=== PATIENT | female | born 1960 | race Caucasian/White ===

== ENCOUNTER 2018-08-04 19:00 | Outpatient (REF) | payer OTHER, SELFPAY ==
[2018-08-04 22:21] LABS: Bilirubin Negative (Negative); Blood Moderate (Negative); Clarity Clear; Glucose Negative (Negative); Ketones Negative (Negative); Leukocyte Esterase Negative (Negative); Nitrite Negative (Negative); Urobilinogen 0.2 EU/dL (Up TO 0.2); pH 5.5 (5-8)
[2018-08-04 22:39] LABS: Bacteria Negative HPF (Negative); C & S Indicated? No; Casts Negative LPF (Negative); Crystals Negative HPF (Negative); Epithelial Cells Negative HPF (Negative); Mucus Negative (Negative); Other Cells Negative (Negative); RBC 0-2 (0-2); WBC Negative HPF (0-5)
== END 2018-08-04 19:20 ==
LOC: LBN 19:00
PROVIDERS: PCP Nurse Practitioner Family; Visit Provider Nurse Practitioner Family
DX: R31.9 Hematuria, unspecified (principal)
CPT/HCPCS: 81003; 81015; 87086

== ENCOUNTER 2018-08-11 01:50 | Outpatient (CLI) | payer OTHER, SELFPAY ==
--- NOTE | 2018-08-11 07:47 | DI.US_ITS ---
SYMPTOMS/DIAGNOSIS: POSTMENOPAUSAL BLEEDING, HEMATURIA PELVIC ULTRASOUND: The uterus measures 6.6 cm length, 3.2 cm in height and 4.8 cm in width with an endometrial stripe thickness of 5 mm. There is a posterior fibroid measuring 2.1 x 2.3 x 2.0 cm at the junction of the fundus and proximal uterine body. The right ovary measures 3.2 x 2.1 x 2.3 cm. The left ovary measures 2.0 x 1.0 x 2.1 cm. Normal color flow is noted in both ovaries. A simple cyst in the right ovary measures 1.8 x 1.5 x 1.5 cm. The left ovary is unremarkable. SUMMARY: A uterine fibroid is demonstrated and there is a right renal cyst. There is no evidence of free pelvic fluid or mass. ABDOMINAL ULTRASOUND: The aorta and vena cava are intact. The liver is intact. The gallbladder is unremarkable. The common duct is normal in caliber. The pancreas and spleen are intact. The kidneys are unremarkable. There is no evidence of free fluid. SUMMARY: Normal abdominal ultrasound.
== END 2018-08-11 02:10 ==
PROVIDERS: PCP Nurse Practitioner Family; Visit Provider Nurse Practitioner Family
DX: N95.0 Postmenopausal bleeding (principal); R31.9 Hematuria, unspecified; D25.9 Leiomyoma of uterus, unspecified; N28.1 Cyst of kidney, acquired
CPT/HCPCS: 76700; 76830; 76856

== ENCOUNTER 2018-08-12 17:11 | Outpatient (REF) | payer OTHER, SELFPAY ==
--- NOTE | 2018-08-12 15:20 | ENDOMET_PTH ---
PATIENT: Kimberly Pitts LOC: [facility] U#:[id number] AGE/SX: 58/F ROOM: RE08/12/[address]: Pauly Feng : 1960 BED: DIS: 08/12/2018 SPEC #: [id number] RECD: 08/12/18 17:21 STATUS: ILSA REHeraclio #: [id number] PAULINA: 08/12/18 15:[address]: Pauly Feng DEPT: Surgical Specimen RECD BY: Cherri James ENTERED: 08/12/18 17:21 SP TYPE: Endomet GONZALEZ DR: SELENE Reese Tissues: 1 - ENDOMETRIUM BX/CURRETTE Procedures: GROSS AND MICRO LEVEL 4 Comments: [id number]
== END 2018-08-12 17:31 ==
LOC: LBN 17:11
PROVIDERS: PCP Nurse Practitioner Family; Visit Provider Obstetrics & Gynecology Gynecology
DX: N85.8 Other specified noninflammatory disorders of uterus (principal); N95.0 Postmenopausal bleeding
CPT/HCPCS: 88305

== ENCOUNTER 2018-10-03 16:27 | Outpatient (REF) | payer OTHER, SELFPAY ==
--- NOTE | 2018-10-03 15:30 | PAPFT_PTH ---
PATIENT: Kimberly Pitts LOC: [facility] U#:[id number] AGE/SX: 58/F ROOM: RE10/03/[address]: SELENE Reese : 1960 BED: DIS: 10/03/2018 SPEC #: [id number] RECD: 10/04/18 13:23 STATUS: ILSA YATES #: [id number] PAULINA: 10/03/18 15:[address]: Emily Stevens DEPT: [facility] Cytology RECD BY: Cherri James Tissues: 1 - CX/ENDOCX FOR PAP SMEARS Procedures: PAP THIN PREP/UVM Screening HPV DNA PROBE Comments: [id number]
== END 2018-10-03 16:47 ==
LOC: LBN 16:27
PROVIDERS: PCP Nurse Practitioner Family; Visit Provider Nurse Practitioner Family
DX: Z12.4 Encounter for screening for malignant neoplasm of cervix (principal); Z11.51 Encounter for screening for human papillomavirus (HPV)
CPT/HCPCS: 88142; 87624

== ENCOUNTER 2018-10-12 00:49 | Outpatient (CLI) | payer OTHER, SELFPAY ==
--- NOTE | 2018-10-12 07:50 | DI.MAMMO_ITS ---
SYMPTOM/DIAGNOSIS: SCREENING, Z12.31 MAMMOGRAMS: Mammograms were interpreted according to the usual protocol including computer analysis with CAD system, tomosynthesis and C view imaging. Comparison with prior examinations. Breast density C. No suspicious masses or microcalcifications are seen. There is no definite evidence of malignancy. IMPRESSION: Negative mammogram. Routine screening is recommended. Category I. MQSA ASSESSMENT OF FINDINGS: Negative. Category 1. Patient will receive a letter notifying them of these results. Bi-RADS category C. The breasts are heterogeneously dense, which may obscure small masses.
== END 2018-10-12 01:09 ==
PROVIDERS: PCP Nurse Practitioner Family; Visit Provider Nurse Practitioner Family
DX: Z12.31 Encounter for screening mammogram for malignant neoplasm of breast (principal)
CPT/HCPCS: 77063; 77067

== ENCOUNTER 2019-02-06 10:55 | Day surgery (SDC) | payer OTHER, SELFPAY ==
--- NOTE | 2019-02-06 06:54 | W.COLOREPORT ---
Date of service: 02/06/19 Time of Service: 12:16 Colonoscopy Report Date of procedure: 02/06/19 Pre-op diagnosis general: Hx of colon polyps Post-op diagnosis procedure note: same (sigmoid polyp and diverticula) Procedure: Colonoscopy with polypectomy by cold forceps Surgeon: Milvia Gloria Anesthesia proc note operative: other (General/ ASA 2/ Raven Thakur, MORGAN) Estimated blood loss (mL): 3 Pathology: other (sigmoid colon polyp) Complications: None Disposition: same day Indications: Mrs. Pitts is a pleasant 58 year old female seen in the office for a follow up Colonoscopy. Her last Colonoscopy was in 2016 and she was found to have a sessile serrated adenoma. Risks, benefits and complications have been reviewed. Complications include but are not limited to bleeding, pain, perforation, missed small lesion/polyp, sore throat, aspiration and adverse reaction to the medications. Questions were entertained and answered to their satisfaction and they wished to proceed. No guarantees were given or implied. Prep: Miralax/Dulcolax Procedure Start Time: 12:16 Procedure End Time: 12:39 Retraction Time: 18 minutes Findings: One small sessile polyp in the sigmoid colon and moderate dievrticulosis of descending and sigmoid colon Procedure Description: After informed consent was obtained the patient was taken to the procedure room and placed in a left decubitous position. Monitors were applied and a time out was done. The patients name, date of , procedure, allergies to medications and metal in their body was reviewed. The patient was then sedated. Once sedated and comfortable a rectal exam was done. External exam was normal. Internal exam revealed a normal sphincter tone and no palpable masses. The scope was then introduced and retro-flexed. No internal hemorrhoids were identified. The scope was then advanced to the cecum without difficulty. The TI and appendiceal orifice were identified. The prep was adequate. The scope was then slowly retracted over 18 minutes back into the rectum. Polyps were removed with cold forceps in the sigmoid colon. The scope was removed and the patient was woken up and taken back to Same day surgery in stable condition. The patient tolerated the procedure well and there were no immediate complications. Follow up: The patient should follow up in 3-5 years unless they develop changes in bowel habits or other new gastrointestinal complaints.
--- NOTE | 2019-02-06 06:56 | W.PM.DSUDISC ---
Discharge Plan Disposition Patient Disposition: HOME Condition: Good Discharge Details Reason For Visit: Hx of Colon polyps Attending Provider: Milvia Gloria Primary Care Provider: Emily Stevens Home Meds and New Rx's Prescriptions: Continued ibuprofen 200 mg capsule 200 mg PO TID-QID PRNRF: 0 acetaminophen [Tylenol Extra Strength] 500 mg tablet 1,000 mg PO Q6H PRNRF: 0 Discontinued polyethylene glycol 3350 17 gram/dose powder 238 g PO ONCE Qty: 238 RF: 0 bisacodyl [Dulcolax (bisacodyl)] 5 mg tablet,delayed release (DR/EC) 5 mg PO ONCE Qty: 4 RF: 0 Discharge Instructions Instructions: Colonoscopy (DC), Diverticulosis (DC), Colorectal Polyps (DC) Additional Instructions: Findings: One polyp Diverticulosis Follow up: 3-5 years ago Please call if you develop: fevers >101.5 Nausea or Vomiting Abdominal pain that is not transient DAY SURGERY UNIT POST COLONOSCOPY INSTRUCTIONS 1. Because there will be medication in your system for the next 24 hours, you may feel a little sleepy. Your coordination will be affected. Therefore: a. Do not drive or operate dangerous equipment for 24 hours. b. Do not drink alcohol beverages for 24 hours (not even beer). c. Plan to go home and rest for the day. 2. Generally there are no restrictions on your activity after a day or so has gone by, but you may feel a bit fatigued for a few days. 3 After you arrive home you may have a light meal and return to a normal diet as you can tolerate it without feeling sick to your stomach. 4. After surgery, you may feel pain or discomfort. This should be only transient, but if it persists please contact your doctor. 5. If there are any questions regarding the findings of your procedure, please feel free to contact your doctor. 6. If you are unable to contact your doctor with a problem, contact the hospital at [phone]. 7. Continue all your regular medications unless directed otherwise. I understand the above instructions and have no questions. Signature of Patient or Responsible Adult Escort Date/Time Name of Responsible Adult Escort Signature of Nurse Date/Time Activity:: Activity as Tolerated Diet:: High Fiber diet Discharge Orders Discharge Orders: Discharge Order (Routine); Ordered 02/06/19 Ordered By: Milvia Gloria DS: Diagnosis Discharge Diagnosis (1) S/P colonoscopy: Status: Acute (2) Colorectal polyp detected on colonoscopy: Status: Acute (3) Diverticulosis: Status: Acute
[2019-02-06 11:24] VITALS: BP 120/73; PULSE 71; RESP 16; TEMP 36; O2SAT 96
[2019-02-06] MEDS: Lactated Ringers 1,000 ML 80 ML IV (12:04)
--- NOTE | 2019-02-06 12:30 | BOWEL_PTH ---
PATIENT: Kimberly Pitts LOC: [facility] U#:[id number] AGE/SX: 58/F ROOM: RE02/06/[address]: Milvia Gloria MD : 1960 BED: DIS: 02/06/2019 SPEC #: [id number] RECD: 02/06/19 13:00 STATUS: ILSA YATES #: [id number] PAULINA: 02/06/19 12:[address]: Milvia Gloria DEPT: Surgical Specimen RECD BY: Cherri James ENTERED: 02/06/19 13:00 SP TYPE: Bowel OTHR DR: SELENE Reese Tissues: 1 - BIOPSY BOWEL Procedures: GROSS AND MICRO LEVEL 4 Comments: [id number]
[2019-02-06 14:05] VITALS: BP 100/58; PULSE 67; RESP 14; TEMP 35.4; O2SAT 97
== END 2019-02-06 13:45 | disposition home or self-care (01) ==
LOC: SUR 10:55
PROVIDERS: PCP Nurse Practitioner Family; Visit Provider Surgery
PROC: 0DJD8ZZ Inspection of Lower Intestinal Tract, Via Natural or Artificial Opening Endoscopic (ICD-10-PCS; CPT 45378; principal; 2019-02-06 12:00)
DX: Z12.11 Encounter for screening for malignant neoplasm of colon (principal); K63.5 Polyp of colon; K57.30 Diverticulosis of large intestine without perforation or abscess without bleeding; Z86.010 Personal history of colon polyps; K21.9 Gastro-esophageal reflux disease without esophagitis
CPT/HCPCS: 45380; 88305

== ENCOUNTER 2019-09-16 09:09 | Outpatient (CLI) | payer OTHER, SELFPAY ==
[2019-09-16 11:42] LABS: Anion Gap 9.2 mmol/L (3-11); BUN 16 mg/dL (7-18); CO2 28.8 mmol/L (21.0-32.0); CREATININE 0.72 mg/dL (0.55-1.02); Calcium 9.1 mg/dL (8.5-10.1); Calculated LDL 164 mg/dL; Chloride 103 mmol/L (98-107); Cholesterol 243 mg/dL (<200); Glucose 90 mg/dL (74-106); HDL Cholesterol 68 mg/dL (40-60); Potassium 4.9 mmol/L (3.5-5.1); Sodium 141 mmol/L (136-145); Triglyceride 59 mg/dL (<150)
== END 2019-09-16 09:29 ==
PROVIDERS: PCP Nurse Practitioner Family; Visit Provider Nurse Practitioner Family
DX: E78.5 Hyperlipidemia, unspecified (principal)
CPT/HCPCS: 36415; 80048; 80061

== ENCOUNTER 2019-11-06 00:17 | Outpatient (CLI) | payer OTHER, SELFPAY ==
--- NOTE | 2019-11-06 07:30 | DI.MAMMO_ITS ---
EXAM: MG MAMMO SCREENING CLINICAL HISTORY: screening, Z12.39 TECHNIQUE: Bilateral full field digital CC and MLO mammographic images were obtained with 3D tomosyn thesis and utilizing computer aided detection (CAD). COMPARISON: Available for comparison. FINDINGS: Masses/Architectural Distortion: None seen. Microcalcifications: No suspicious pleomorphic-type are seen. Skin Thickening/Nipple Retraction: None. IMPRESSION: 1. No significant interval change with no specific features of malignancy noted. 2. Unless there is more urgent need, screening mammography is recommended, as per [employer] guidelines. BI-RADS Cat 1 - Negative Breast Density - Category C - Heterogeneously dense The mammogram demonstrates the patient's breast tissue is dense. Dense breast tissue is very common a nd is not abnormal but dense breast tissue can make it harder to find cancer on a mammogram. Also, de nse breast tissue may increase their breast cancer risk. This information about the result of the [facility] mogram report was provided to the patient to raise their awareness. Use this report when you speak wi th the patient about their risks for breast cancer, which includes their family history. At that time , you may recommend for more screening tests (Ultrasound or MRI) as they might be useful based on the ir risk. A negative radiographic report should not delay biopsy if a dominant or clinically suspicious mass is present. Up to ten percent of cancers are not identified on mammography. A negative report may reinforce clinical impression. Adenosis and dense breasts may obscure an underlying neoplasm. False positive reports average 6 to 10%. Patient will receive a letter notifying them of these results.
== END 2019-11-06 00:37 ==
PROVIDERS: PCP Nurse Practitioner Family; Visit Provider Nurse Practitioner Family
DX: Z12.31 Encounter for screening mammogram for malignant neoplasm of breast (principal)
CPT/HCPCS: 77063; 77067

== ENCOUNTER 2020-05-03 19:13 | Outpatient (CLI) | payer OTHER, SELFPAY ==
--- NOTE | 2020-05-03 10:31 | DI.RAD_ITS ---
EXAM: XR CERVICAL SPINE COMP 4-5V CLINICAL HISTORY: neck pain, M54.2 CERVICALGIA TECHNIQUE: 2D digital imaging was performed. COMPARISON: No exams were available for comparison FINDINGS: There is mild narrowing of the C4-5 disc space. There are small endplate osteophytes at this level. There is marked left narrowing of the C5-6 disc space. The remaining disc spaces are well maintaine d. There are facet joint degenerative changes throughout which are most prominent at C3-4. Left-mica ed neural foraminal encroachment is seen at C3-4 and C5-6. There is mild neural foraminal encroachme nt at C5-6 on the right. The airway appears intact. IMPRESSION: Degenerative changes, greatest at C3-4 and C5-6 where there is neural foraminal narrowing.
== END 2020-05-03 19:33 ==
PROVIDERS: PCP Nurse Practitioner Family; Visit Provider Nurse Practitioner Family
DX: M54.2 Cervicalgia (principal); M47.812 Spondylosis without myelopathy or radiculopathy, cervical region; M48.02 Spinal stenosis, cervical region
CPT/HCPCS: 72050

== ENCOUNTER 2020-05-07 13:32 | Outpatient (CLI) | payer OTHER, SELFPAY ==
--- NOTE | 2020-05-07 10:28 | DI.RAD_ITS ---
EXAM: XR THORACIC SPINE COMPLETE CLINICAL HISTORY: back pain thoracic, M54.6 TECHNIQUE: COMPARISON: CR XR CERVICAL SPINE COMP 4-5V from 05/03/2020 FINDINGS: Three views were obtained. There is mild narrowing of the intervertebral disc spaces throughout the thoracic region. Mild hypertrophic endplate and facet joint changes noted. No evidence of compressi on fracture. No gross erosive or destructive lesion. IMPRESSION: Mild degenerative changes of the thoracic spine. RADIATION DOSE DELIVERED: Total DLP
== END 2020-05-07 13:52 ==
PROVIDERS: PCP Nurse Practitioner Family; Visit Provider Nurse Practitioner Family
DX: M47.894 Other spondylosis, thoracic region (principal)
CPT/HCPCS: 72072

== ENCOUNTER 2020-11-07 02:43 | Outpatient (CLI) | payer OTHER, SELFPAY ==
[2020-11-07 09:05] LABS: Calculated LDL 157 mg/dL (<100); Cholesterol 242 mg/dL (<200); HDL Cholesterol 64 mg/dL (40-60); Triglyceride 106 mg/dL (<150)
== END 2020-11-07 02:44 | disposition home or self-care (01) ==
LOC: LBO 02:43
PROVIDERS: PCP Nurse Practitioner Family; Visit Provider Nurse Practitioner Family
DX: E78.5 Hyperlipidemia, unspecified (principal)
CPT/HCPCS: 36415; 80061

== ENCOUNTER 2020-11-12 02:08 | Outpatient (CLI) | payer OTHER, SELFPAY ==
--- NOTE | 2020-11-12 06:45 | DI.MAMMO_ITS ---
EXAM: MG MAMMO SCREENING CLINICAL HISTORY: screening,z12.39 TECHNIQUE: Bilateral full field digital CC and MLO mammographic images were obtained with 3D tomosyn thesis and utilizing computer aided detection (CAD). COMPARISON: Available for comparison. FINDINGS: Masses/Architectural Distortion: None seen. Microcalcifications: No suspicious pleomorphic-type are seen. Skin Thickening/Nipple Retraction: None. IMPRESSION: 1. No significant interval change with no specific features of malignancy noted. 2. Unless there is more urgent need, screening mammography is recommended, as per [employer] guidelines. BI-RADS Category 1 - Negative Breast Density - Category C - Heterogeneously dense Breast density category C or D implies that the patient has dense breast tissue. Dense breast tissue is very common and is not abnormal but dense breast tissue can make it harder to find cancer on a ma mmogram. Also, dense breast tissue may increase their breast cancer risk. This information about the result of the mammogram report was provided to the patient to raise their awareness. Use this report when you speak with the patient about their risks for breast cancer, which includes their family hist ory. At that time, you may recommend for more screening tests (Ultrasound or MRI) as they might be us eful based on their risk. A negative radiographic report should not delay biopsy if a dominant or clinically suspicious mass is present. Up to ten percent of cancers are not identified on mammography. A negative report may reinforce clinical impression. Adenosis and dense breasts may obscure an underlying neoplasm. False positive reports average 6 to 10%. Patient will receive a letter notifying them of these results.
== END 2020-11-12 02:28 ==
PROVIDERS: PCP Nurse Practitioner Family; Visit Provider Nurse Practitioner Family
DX: Z12.31 Encounter for screening mammogram for malignant neoplasm of breast (principal)
CPT/HCPCS: 77063; 77067

== ENCOUNTER 2021-12-03 02:03 | Outpatient (CLI) | payer OTHER, SELFPAY ==
--- NOTE | 2021-12-03 06:30 | DI.MAMMO_ITS ---
Exam(s) MAMMO SCREENING EXAM: MAMMO SCREENING CLINICAL HISTORY: screening,z12.39 TECHNIQUE: Mammograms were interpreted according to the usual protocol including computer analysis w [employer] CAD system, tomosynthesis and C-view imaging. COMPARISON: 2012 through 2020 FINDINGS: The breasts are composed of scattered fibroglandular densities, Breast Density category B. No suspicious masses or suspicious microcalcifications are seen. No skin thickening or abnormal axillary lymph nodes are seen. There has been no significant change from prior exams. IMPRESSION: BI-RADS Category 1, Negative mammogram Yearly screening mammography is recommended. Breast Density - Category B, scattered fibroglandular densities. A negative radiographic report should not delay biopsy if a dominant or clinically suspicious mass is present. Up to ten percent of cancers are not identified on mammography. A negative report may reinforce clinical impression. Adenosis and dense breasts may obscure an underlying neoplasm. False positive reports average 6 to 10%. Patient will receive a letter notifying them of these results.
== END 2021-12-03 02:23 ==
PROVIDERS: PCP Nurse Practitioner Family; Visit Provider Nurse Practitioner Family
DX: Z12.31 Encounter for screening mammogram for malignant neoplasm of breast (principal)
CPT/HCPCS: 77063; 77067

== ENCOUNTER 2022-11-19 02:42 | Outpatient (CLI) | payer OTHER, SELFPAY ==
[2022-11-19 09:46] LABS: Anion Gap 9.3 mmol/L (3-11); BUN 14 mg/dL (7-18); CO2 28.7 mmol/L (21.0-32.0); CREATININE 0.9 mg/dL (0.55-1.02); Calcium 9.3 mg/dL (8.5-10.1); Calculated LDL 195 mg/dL (<100); Chloride 103 mmol/L (98-107); Cholesterol 287 mg/dL (<200); Estimated GFR 72.28 (mL/min/1.73m2); Glucose 103 mg/dL (74-106); HDL Cholesterol 79 mg/dL (40-60); Potassium 4.3 mmol/L (3.5-5.1); Sodium 141 mmol/L (136-145); TSH (W/Ref FT4) 4.72 uIU/mL (0.36-3.74); Triglyceride 65 mg/dL (<150)
[2022-11-19 10:03] LABS: FREE T4 1.04 ng/dL (0.76-1.46)
== END 2022-11-19 02:43 | disposition home or self-care (01) ==
PROVIDERS: PCP Nurse Practitioner Family; Visit Provider Nurse Practitioner Family
DX: Z00.00 Encounter for general adult medical examination without abnormal findings (principal)
CPT/HCPCS: 36415; 80048; 80061; 84439; 84443

== ENCOUNTER 2022-12-07 01:04 | Outpatient (CLI) | payer OTHER, SELFPAY ==
--- NOTE | 2022-12-07 07:45 | DI.MAMMO_ITS ---
Exam(s) MAMMO SCREENING EXAM: MAMMO SCREENING CLINICAL HISTORY: screening,z12.39. TECHNIQUE: Bilateral full field digital CC and MLO mammographic images were obtained with 3D tomosyn thesis and utilizing computer aided detection (CAD). COMPARISON: Prior mammograms were reviewed. FINDINGS: There has been no significant change in the appearance and distribution of the fibroglandular tissue. There are no new spiculated masses nor malignant appearing microcalcification groups. There is no significant architectural distortion nor skin thickening-retraction. IMPRESSION: No radiographic evidence of malignancy. BI-RADS Category 1 - Negative Breast Density - Category C - Heterogeneously dense Breast density Category C or D implies that the patient has dense breast tissue. Dense breast tissue can make it harder to find cancer on a mammogram. Dense breast tissue is also associated with an incr eased risk of breast cancer. This information about the result of the mammogram report was provided to the patient to raise their awareness. Use this report when you speak with the patient about their risks for breast cancer, which includes their family history. At that time, you may recommend additional screening tests (Ultrasoun d or MRI) as these tests may add significant information. A negative radiographic report should not delay biopsy if a dominant or clinically suspicious mass is present. Up to ten percent of cancers are not identified on mammography. A negative report may reinforce clinical impression. Adenosis and dense breasts may obscure an underlying neoplasm. False positive reports average 6 to 10%. Patient will receive a letter notifying them of these results.
== END 2022-12-07 01:24 ==
LOC: DI 01:05
PROVIDERS: PCP Nurse Practitioner Family; Visit Provider Nurse Practitioner Family
DX: Z12.31 Encounter for screening mammogram for malignant neoplasm of breast (principal); R92.2 Inconclusive mammogram
CPT/HCPCS: 77063; 77067

== ENCOUNTER 2023-04-28 04:05 | Outpatient (CLI) | payer OTHER, SELFPAY ==
[2023-04-28 09:45] LABS: Calculated LDL 158 mg/dL (<100); Cholesterol 244 mg/dL (<200); HDL Cholesterol 72 mg/dL (40-60); Triglyceride 70 mg/dL (<150)
== END 2023-04-28 04:06 | disposition home or self-care (01) ==
LOC: LBO 04:05
PROVIDERS: PCP Nurse Practitioner Family; Visit Provider Nurse Practitioner Family
DX: E78.5 Hyperlipidemia, unspecified (principal)
CPT/HCPCS: 36415; 80061

== ENCOUNTER 2024-02-04 08:01 | Outpatient (REF) | payer OTHER, SELFPAY ==
--- NOTE | 2024-02-04 07:00 | PAPFT_PTH ---
PATIENT: Kimberly Pitts LOC: [facility] U#:[id number] AGE/SX: 63/F ROOM: RE02/04/[address]: SELENE Reese : 1960 BED: DIS: 02/04/2024 SPEC #: [id number] RECD: 02/04/24 13:42 STATUS: ILSA REHeraclio #: [id number] PAULINA: 02/04/24 07:[address]: Emily Stevens DEPT: [facility] Cytology RECD BY: Cherri James Tissues: 1 - CX/ENDOCX FOR PAP SMEARS Procedures: PAP THIN PREP/UVM Screening HPV DNA PROBE Comments: [id number]
== END 2024-02-04 08:02 | disposition home or self-care (01) ==
LOC: LBN 08:01
PROVIDERS: PCP Nurse Practitioner Family; Visit Provider Nurse Practitioner Family
DX: Z11.51 Encounter for screening for human papillomavirus (HPV) (principal); Z01.419 Encounter for gynecological examination (general) (routine) without abnormal findings
CPT/HCPCS: 88142; 87624

== ENCOUNTER → 2024-02-10 00:34 | Outpatient (CLI) | payer OTHER, SELFPAY ==
--- NOTE | 2024-02-10 12:52 | DI.MAMMO_ITS ---
Exam(s) MAMMO SCREENING EXAM: MAMMO SCREENING CLINICAL HISTORY: screening, Z12.39 TECHNIQUE: Bilateral full field digital CC and MLO mammographic images were obtained with 3D tomosyn thesis and utilizing computer aided detection (CAD). COMPARISON: Available for comparison. FINDINGS: Masses/Architectural Distortion: None seen. Microcalcifications: No suspicious pleomorphic-type are seen. Skin Thickening/Nipple Retraction: None. IMPRESSION: 1. No significant interval change with no specific features of malignancy noted. 2. Unless there is more urgent need, screening mammography is recommended, as per [employer] guidelines. BI-RADS Category 1 - Negative Breast Density - Category C - Heterogeneously dense Breast density category C or D implies that the patient has dense breast tissue. Dense breast tissue is very common and is not abnormal but dense breast tissue can make it harder to find cancer on a ma mmogram. Also, dense breast tissue may increase their breast cancer risk. This information about the result of the mammogram report was provided to the patient to raise their awareness. Use this report when you speak with the patient about their risks for breast cancer, which includes their family hist ory. At that time, you may recommend for more screening tests (Ultrasound or MRI) as they might be us eful based on their risk. A negative radiographic report should not delay biopsy if a dominant or clinically suspicious mass is present. Up to ten percent of cancers are not identified on mammography. A negative report may reinforce clinical impression. Adenosis and dense breasts may obscure an underlying neoplasm. False positive reports average 6 to 10%. Patient will receive a letter notifying them of these results.
== END ==
PROVIDERS: PCP Nurse Practitioner Family; Visit Provider Nurse Practitioner Family
DX: Z12.31 Encounter for screening mammogram for malignant neoplasm of breast (principal); R92.333 Mammographic heterogeneous density, bilateral breasts
CPT/HCPCS: 77063; 77067

== ENCOUNTER 2024-03-27 03:23 | Outpatient (CLI) | payer OTHER, SELFPAY ==
[2024-03-27 08:53] LABS: Anion Gap 7.8 mmol/L (3-11); BUN 10 mg/dL (7-18); CO2 29.2 mmol/L (21.0-32.0); CREATININE 0.9 mg/dL (0.55-1.02); Calcium 9.2 mg/dL (8.5-10.1); Chloride 102 mmol/L (98-107); Estimated GFR 71.83 (mL/min/1.73m2); Glucose 99 mg/dL (74-106); Potassium 3.9 mmol/L (3.5-5.1); Sodium 139 mmol/L (136-145); TSH (W/Ref FT4) 5.36 uIU/mL (0.36-3.74)
[2024-03-27 09:16] LABS: FREE T4 1.08 ng/dL (0.76-1.46)
[2024-03-28 09:22] LABS: HBs Antibody, Quant <3.1 mIU/mL (See Note); Hep B Surface Ab Negative (See Note); Hepatitis B Core Antibody Negative (Negative); Hepatitis B Surface Antigen Negative (Negative)
[2024-03-28 09:33] LABS: Hepatitis C Ab w Rflx HCV PCR Negative (Negative)
[2024-03-28 09:46] LABS: HIV-1/2 Ag & Ab Screen Negative (Negative)
[2024-03-30 12:02] LABS: Lab Add On Test DONE
[2024-03-30 21:25] LABS: Thyroglobulin Antibody 106 U/mL (<=60); Thyroperoxidase Antibody 48 U/mL (<=60)
== END 2024-03-27 03:24 | disposition home or self-care (01) ==
LOC: LBO 03:24
PROVIDERS: PCP Nurse Practitioner Family; Visit Provider Nurse Practitioner Family
DX: Z11.59 Encounter for screening for other viral diseases (principal); Z00.00 Encounter for general adult medical examination without abnormal findings; Z11.4 Encounter for screening for human immunodeficiency virus [HIV]
CPT/HCPCS: 36415; 80048; 86376; 86704; 86706; 86803; 87340; 87389; 84439; 84443

== ENCOUNTER 2024-06-02 09:46 | Day surgery (SDC) | payer OTHER, SELFPAY ==
--- NOTE | 2024-06-01 11:46 | W.PM.DSUDISC ---
Date of service: 06/02/24 Time of Service: 12:56 Discharge Plan Disposition Patient Disposition: Home Condition: Good Discharge Details Reason For Visit: screening colonoscopy Attending Provider: Niles Antonio Primary Care Provider: Emily Stevens Home Meds and New Rx's Prescriptions: Discontinued bisacodyl [Dulcolax (bisacodyl)] 5 mg tablet,delayed release (DR/EC) 5 mg PO ONCE Qty: 4 0RF Rx Instructions: Take per colonoscopy instructions provided by ordering providers office polyethylene glycol 3350 17 gram/dose powder 17 g PO ONCE Qty: 238 0RF Rx Instructions: Take per colonoscopy instructions provided by ordering providers office Discharge Instructions Instructions: Colon polyps, Diverticulosis Additional Instructions: Kimberly, we are able to complete your colonoscopy today without much difficulty. Your prep was excellent and I could see everything fine. I did find your removed 2 bits of tissue today, that seem consistent with polyps. These will be sent off for testing, and once today's results, the office will be in touch with recommendations for your next colonoscopy. Incidentally, you also have some diverticulosis. Diverticula are weak spots in the muscular part of the colon wall. They typically accumulate as we get older. I have attached some basic information here about colon polyps, as well as diverticulosis. If you have any questions at all, please do not hesitate to ask at any point. 1. If tolerated, consume a soft, low fiber diet for 1-2 days. 2[address] Do not drive, drink alcohol, operate machinery, make critical decisions, or do activities that require coordination or balance for 24 hours. 3. Because air was put into your colon during the procedure, expelling air from your rectum (passing gas or farting) is normal. 4. You may not have a bowel movement for 1-3 days because of the colonoscopy prep. This is normal. 5. Go directly to the emergency room if you notice any of the following: Develop chills (warm to touch), or if you have a thermometer and your temperature is above 101 Difficulty breathing or difficultly swallowing Persistent vomiting Severe abdominal pain, other than gas cramps Severe chest pain Black, tarry stools Any bleeding ? exceeding one tablespoon 6. Call your physician if the site where your intravenous was started becomes red, swollen, painful, and warm to touch. 7. Your physician has reviewed your pre-procedure medications. Please continue to take those medications as previously ordered. You will be given specific information/education regarding any changes to your medications before leaving. Stand Alone Forms: Anesthesia Discharge InstMarito, Raphael Amaro (DSU) Activity:: Activity as Tolerated Diet:: As Tolerated Discharge Orders Discharge Orders: Discharge Order (Routine); Ordered 06/01/24 Ordered By: Niles Antonio DS: Diagnosis Discharge Diagnosis (1) Encounter for screening colonoscopy: Status: Acute Asessment and Plan: Follow-up on polypectomy results
--- NOTE | 2024-06-01 11:48 | COLE_ITS ---
Date of service: 06/02/24 Time of Service: 12:58 Colonoscopy Report Date of procedure: 06/02/24 Pre-op diagnosis general: screening colonoscopy Post-op diagnosis procedure note: other (Diverticulosis, colon polyps) Procedure: colonoscopy with polypectomy Surgeon: Niles Antonio Anesthesia Type: General:No Airway Estimated blood loss (mL): 10 Pathology: other (0.25 cm flat polyp at 40 cm, 0.25 cm flat polyp at 20 cm) Complications: None Disposition: same day Indications: Kimberly is a 64 year old woman with a family history of colon cancer. She needs her next screening colonoscopy Prep: Miralax/Dulcolax Procedure Start Time: 12:29 Procedure End Time: 12:49 Retraction Time: 14 Findings: Sigmoid and left-sided diverticulosis, colon polyps Procedure Description: After the induction of anesthesia, and with the patient in left lateral decubitus position, I began by performing an external anorectal exam.? Perineum and skin were normal, as was the anal verge.? There was no evidence of external hemorrhoids.? Next, I performed a digital rectal exam.? I did not appreciate any abnormal findings.? Next, I advanced a colonoscope into the rectal vault.? I performed retroflexion.? This appears normal.? Using insufflation, I then a dvanced the colonoscope beyond the rectal folds and into the sigmoid colon before advancing towards the cecum.? There is some sigmoid diverticulosis that extends up into the descending colon.? The scope was noted to be in the cecum by identification of the ileocecal valve and appendiceal orifice.? I then began withdrawing the colonoscope using repeated irrigation as necessary for full evaluation of the colonic mucosa. Around 40 cm from the anal verge I identified a 0.25 cm polyp. ?It appeared flat in character. ?I was able to remove this with a cold forcep polypectomy. ?I examined the site, and there was minimal bleeding. ?Once this was completed, I continued to withdraw the scope and examine the remainder of the colonic mucosa.? Around 20 cm from the anal verge was another polyp. This may have actually been intermittent for did diverticula as it appeared rather bland on the narrowband imaging. To be safe, however, I did perform cold forcep polypectomy here as well. Once the scope was withdrawn to the level of the rectum, great care was taken to examine portions of the rectal folds.? Finally, the scope was withdrawn and the patient was brought to the same-day surgery recovery unit as the anesthetic wore off. ?The findings and instructions were shared with the patient prior to discharge. [place] Bowel Prep [place] Bowel Prep Right Colon: 3 Left Colon: 3 Transverse Colon: 3 Total Score: 9
[2024-06-02 10:19] VITALS: BP 132/78; PULSE 76; RESP 16; TEMP 36.2; O2SAT 98
[2024-06-02] MEDS: Lactated Ringers 1,000 ML 80 ML IV (10:33)
--- NOTE | 2024-06-02 11:25 | W.ANESPRE ---
General Info Date of Service Date Performed: 06/02/24 Height: 5 ft 1 in Weight: 65.6 kg Body Mass Index (BMI): 27.3 Surgical Procedure: Operation Date: 06/02/24 11:20 Proposed Procedure Side Surgeon p Colonoscopy Niles Antonio MD Meds Allergies and Home Medications Allergies Allergy/AdvReac Type Severity Reaction Status Date / Time No Known Allergies Allergy Verified 06/02/24 10:13 Current Visit Medications: Current Medications Generic Name Dose Route Start Last Admin Trade Name Freq PRN Reason Stop Dose Admin Hyoscyamine Sulfate 0.125 mg 06/01/24 11:49 Hyoscyamine 0.125 Mg Sl/Oral/Chew SL 07/01/24 11:48 DIRECTED PRN Ringer's Solution 1,000 mls @ 80 mls/hr 06/02/24 06:00 06/02/24 10:33 IV 06/02/24 23:59 80 mls/hr INFUSION OWEN Administration IV Miscellaneous Supplies 1 each 06/02/24 06:00 Iv Access IV 06/02/24 23:59 DIRECTED OWEN Ondansetron HCl 4 mg 06/01/24 11:49 Ondansetron 4 Mg/2 Ml Vial IVP 07/01/24 11:48 Q4H PRN PRN Nausea / Vomiting Sodium Chloride 0 ml 06/02/24 06:00 Normal Saline Flush 10 Ml Syr IV 06/02/24 23:59 PRN PRN Sodium Chloride 0 ml 06/02/24 06:00 Normal Saline 10 Ml Vial IJ 06/02/24 23:59 DIRECTED PRN Sterile Water 0 ml 06/02/24 06:00 Water,Injection,Sterile 10 Ml Vial IJ 06/02/24 23:59 DIRECTED PRN PFSH Active Problems Active Problems: Problem Status Onset Code Encounter for screening colonoscopy Acute Z12.11 Hyperlipidemia Chronic E78.5 Diverticulosis of colon Chronic K57.30 Subclinical hypothyroidism Chronic E03.8 Medical History Medical History Postmenopausal bleeding (~07/2018) Negative endometrial biopsy GERD (gastroesophageal reflux disease) Serrated adenoma of colon on 2016 colonoscopy Surgical History Surgical History H/O excision of epidermal inclusion cyst S/P colonoscopy (02/06/19) Tobacco Smoking/Tobacco Use Status: Never Passive smoking exposure: No Second hand exposure: Yes Alcohol Alcohol Intake: current Alcohol intake frequency: a few times a week Alcohol type: beer and wine Substance Use Substance use: Never Substance use type: does not use Prental History History 4 Para 2 Hx # Term Pregnancies 2 Multiple births Hx # Pregnancies Ectopic pregnancies AB induced Hx Number of Living Children 2 AB spontaneous 2 Vital Signs and Lab Results Vital Signs Most Recent Vital Signs in EMR: Most Recent Vital Signs Temp Pulse Resp BP Pulse Ox 36.2 C L 76 16 132/78 98 06/02/24 10:19 06/02/24 10:19 06/02/24 10:19 06/02/24 10:19 06/02/24 10:19 Lab Results Blood Type / Crossmatch: No Data to Display Complete Blood Count: No Data to Display Complete Metabolic Panel: No Data to Display Liver Function Panel: No Data to Display Coagulation Panel: No Data to Display Cardiac Panel: No Data to Display Arterial Blood Gas: No Data to Display Venous Blood Gas: No Data to Display Pancreas Panel: No Data to Display Thyroid Panel: No Data to Display Infectious Disease: No Data to Display Blood Cultures: No Data to Display Toxicology Panel: No Data to Display Anesthesia Assessment and Plan Anesthesia History Personal History: No History of Anesthesia Complications Family History: No Family History of Anesthesia Complications Exercise Tolerance Exercise Tolerance: Metabolic Equivalents>4 Cardiac & Pulmonary Exam Cardiac Exam: Normal S1/S2 Heart Sounds Pulmonary Exam: Clear Bilateral Breath Sounds Implantable Cardiac Device Does patient have a Pacemaker or an ICD?: No Airway Exam Known Difficult Airway: No Mallampati Class: 3 Mouth Opening: Normal (> 3cm) Thyromental Distance: Greater than 3 cm Neck Range of Motion: Full ROM Neck Circumference: Normal Teeth Condition: Normal Dentition ASA Classification ASA Score: ASA 2 Emergency Case?: No NPO Status NPO Status: NPO Clears >2 hours, Solids >8 hours Anesthesia Plan Resuscitation Status: Full Code Anesthesia Technique: General Anesthesia Airway Planned: Natural Airway Monitors Used: Standard Monitors Preoperative Comments:: 64 yo female with history of polyps for colo. Sig PMHx: GERD (was an issue a while ago. Very rare that she has issues any more), hypothyroid (doing well, being followed appropriately), neck/back pain (degen changes in cervical/thoracic spine). Previous Anes: - colo, prop, natural airway, no issues
[2024-06-02 11:27] VITALS: BMI 27.3
--- NOTE | 2024-06-02 12:41 | BOWEL_PTH ---
PATIENT: Kimberly Pitts LOC: [facility] U#:[id number] AGE/SX: 64/F ROOM: RE06/02/[address]: Niles Antonio MD : 1960 BED: DIS: 06/02/2024 SPEC #: [id number] RECD: 06/02/24 13:30 STATUS: ILSA RE #: [id number] PAULINA: 06/02/24 12:[address]: Niles Antonio DEPT: Surgical Specimen RECD BY: Trudi Schumacher ENTERED: 06/02/24 13:31 SP TYPE: Bowel OTHR DR: Emily Stevens, SELENE Tissues: 1 - BIOPSY BOWEL 2 - BIOPSY BOWEL Procedures: GROSS AND MICRO LEVEL 4 Comments: [id number]
[2024-06-02 12:52] VITALS: BP 117/77; PULSE 75; RESP 18; TEMP 36.4; O2SAT 96
--- NOTE | 2024-06-02 13:04 | W.ANESPOSTOP ---
Postoperative Evaluation Date, Time and Location Date Performed: 06/02/24 Time Performed: 13:05 Patient Location: Day Surgery Unit Vital Signs Most Recent Imported Vital Signs: Most Recent Vital Signs Temp Pulse Resp BP Pulse Ox 36.4 C L 75 18 117/77 96 06/02/24 12:52 06/02/24 12:52 06/02/24 12:52 06/02/24 12:52 06/02/24 12:52 Pain Score Most Recent Pain Score: Most Recent Pain Score Pain Level 0 06/02/24 12:52 Assessment Mental Status: Awake (Alert & Oriented to Patient Baseline) Airway and Respiratory Function: Patent airway with normal (patient baseline) respiratory exam Cardiovascular Function: Hemodynamically Stable Hydration Status: Adequately Hydrated Nausea & Vomiting: No Nausea or Vomiting Pain: Pt. Denies Any Pain Peripheral Nerve Block: Patient did not receive a nerve block
[2024-06-02 13:22] VITALS: BP 118/72; PULSE 61; RESP 18; TEMP 36; O2SAT 97
== END 2024-06-02 13:43 | disposition home or self-care (01) ==
LOC: SUR 09:46
PROVIDERS: PCP Nurse Practitioner Family; Visit Provider Surgery
PROC: 0DJD8ZZ Inspection of Lower Intestinal Tract, Via Natural or Artificial Opening Endoscopic (ICD-10-PCS; CPT 45378; principal; 2024-06-02 11:15)
DX: Z12.11 Encounter for screening for malignant neoplasm of colon (principal); Z80.0 Family history of malignant neoplasm of digestive organs; K57.30 Diverticulosis of large intestine without perforation or abscess without bleeding; K63.5 Polyp of colon
CPT/HCPCS: 45380; 88305; J2704

== ENCOUNTER 2024-07-04 04:36 | Outpatient (CLI) | payer OTHER, SELFPAY ==
[2024-07-04 08:59] LABS: FREE T4 0.99 ng/dL (0.76-1.46)
== END 2024-07-04 04:37 | disposition home or self-care (01) ==
PROVIDERS: PCP Nurse Practitioner Family; Visit Provider Nurse Practitioner Family
DX: E03.8 Other specified hypothyroidism (principal)
CPT/HCPCS: 36415; 84439; 84443

== ENCOUNTER 2025-05-08 03:31 | Outpatient (CLI) | payer OTHER, MEDICARE, SELFPAY ==
--- NOTE | 2025-05-08 12:27 | DI.MAMMO_ITS ---
Exam(s) MAMMO SCREENING EXAM: MAMMO SCREENING CLINICAL HISTORY: screening,z12.39 TECHNIQUE: Bilateral full field digital CC and MLO mammographic images were obtained with 3D tomosynthesis and utilizing computer aided detection (CAD). COMPARISON: Comparison is made with prior examinations. FINDINGS: Masses/Architectural Distortion: No suspicious masses or areas of architectural distortion are present. Microcalcifications: No suspicious pleomorphic-type are seen. Skin Thickening/Nipple Retraction: None. IMPRESSION: 1. No significant interval change with no specific features of malignancy noted. 2. Unless there is more urgent need, screening mammography is recommended, as per [employer] guidelines. BI-RADS Category 1 - Negative Breast Density - Category C - The breast are heterogeneously dense, which may obscure small masses. Breast density Category C or D implies that the patient has dense breast tissue. Dense breast tissue can make it harder to find cancer on a mammogram. Dense breast tissue is also associated with an increased risk of breast cancer. This information about the result of the mammogram report was provided to the patient to raise their awareness. Use this report when you speak with the patient about their risks for breast cancer, which includes their family history. At that time, you may recommend additional screening tests (Ultrasound or MRI) as these tests may add significant information. A negative radiographic report should not delay biopsy if a dominant or clinically suspicious mass is present. Up to ten percent of cancers are not identified on mammography. A negative report may reinforce clinical impression. Adenosis and dense breasts may obscure an underlying neoplasm. False positive reports average 6 to 10%. Patient will receive a letter notifying them of these results.
== END 2025-05-08 03:51 ==
LOC: DI 03:31
PROVIDERS: PCP Nurse Practitioner Family; Visit Provider Nurse Practitioner Family
DX: Z12.31 Encounter for screening mammogram for malignant neoplasm of breast (principal)
CPT/HCPCS: 77063; 77067

== ENCOUNTER 2025-07-05 02:12 | Outpatient (CLI) | payer OTHER, MEDICARE, SELFPAY ==
[2025-07-05 15:40] LABS: Hemoglobin A1C 5.7 % (<5.7)
[2025-07-05 16:32] LABS: TSH (W/Ref FT4) 3.11 uIU/mL (0.55-4.78)
[2025-07-05 16:41] LABS: ALT 19 U/L (10-49); AST 36 U/L (<34); Albumin 4.4 g/dL (3.4-5.0); Alkaline Phosphatase 97 U/L (46-116); Anion Gap 7.5 mmol/L (3-11); BUN 13 mg/dL (9-23); Bilirubin, Total 0.70 mg/dL (0.2-1.2); CO2 27.5 mmol/L (20.0-31.0); Calcium 9.9 mg/dL (8.3-10.6); Chloride 104 mmol/L (98-107); Cholesterol 225 mg/dL (<200); Glucose 89 mg/dL (74-106); HDL Cholesterol 67 mg/dL (>40); Potassium 4.5 mmol/L (3.5-5.1); Sodium 139 mmol/L (136-145); Total Protein 7.7 g/dL (5.7-8.2)
== END 2025-07-05 02:13 | disposition home or self-care (01) ==
LOC: LBO 02:13
PROVIDERS: Nurse Practitioner Family; PCP Nurse Practitioner Family; Visit Provider Nurse Practitioner Family
DX: Z00.00 Encounter for general adult medical examination without abnormal findings (principal); E78.5 Hyperlipidemia, unspecified; E03.8 Other specified hypothyroidism; R73.01 Impaired fasting glucose
CPT/HCPCS: 36415; 80053; 80061; 83036; 84443